=== PATIENT | female | born 1955 | race Caucasian/White ===

== ENCOUNTER → 2016-07-23 | Outpatient (CLI) | payer BC, OTHER ==
[~2016-07-23] MED LIST: ASPIRIN EC81 M1 PO; BENICAR20 MG PO; ESTRACE0.5 MG PO; LORTAB 5-500 T1 EAC1 PO; MELOXICAM7.5 MG PO; NEURONTIN 300300 M1 PO; OMEPRAZOLE 20 M20 M1 PO; PHILLIPS500 MG PO; SYNTHROID125 MCG PO; ULTRAM 50MG TAB50 MG PO; ZETIA10 MG PO
== END ==
LOC: RAD 02:21
DX: Z12.31 Encounter for screening mammogram for malignant neoplasm of breast (principal)